=== PATIENT | female | born 1955 | race Caucasian/White ===

== ENCOUNTER 2021-11-16 08:51 | Emergency (ER) | payer MEDICARE ==
[~2021-11-16] VITALS: Ht 162.6 cm; Wt 67.1 kg
[2021-11-16] MEDS ORDERED: PRAVASTATIN SOD40 MG PO (09:29)
[2021-11-16] MEDS ORDERED: LISINOPRIL20 MG PO (09:29)
[2021-11-16] MEDS ORDERED: ADDERALL 15 MG15 MG PO (09:29)
[2021-11-16] MEDS ORDERED: DITROPAN XL5 MG PO (09:29)
[2021-11-16] MEDS ORDERED: ASPIRIN 325 MG TAB PO ONE (09:30)
[2021-11-16 09:33] LABS: BASOPHILS % 0.6 % (0.0-1.0); EOSINOPHILS # (AUTO) 0.1 (0.0-0.4); HEMATOCRIT 47.1 % (34.2-44.1); HEMOGLOBIN 14.9 g/dL (12.0-16.0); LYMPHOCYTES % 28.5 % (18.0-39.1); MEAN CORPUSCULAR HGB CONC 31.6 g/dL (31-35); MEAN CORPUSCULAR VOLUME 97.9 fL (81-99); MONOCYTES # (AUTO) 0.4 (0.2-0.8); MONOCYTES % 6.4 % (4.4-11.3); NEUTROPHILS # (AUTO) 4.3 (2.1-6.9); NEUTROPHILS % 62.1 % (38.7-80.0); PLATELET COUNT 275 x10e3/uL (140-360); RED BLOOD COUNT 4.81 x10e6/uL (3.6-5.1); RED CELL DISTRIBUTION WIDTH 12.8 % (11.7-14.4)
[2021-11-16 09:55] LABS: INR 0.82; PARTIAL THROMBOPLASTIN TIME 32.6 seconds (23.8-35.5); PROTHROMBIN TIME 12.1 seconds (11.9-14.5)
[2021-11-16 10:06] LABS: ALANINE AMINOTRANSFERASE 32 IU/L (0-55); ALBUMIN 3.9 g/dL (3.5-5.0); ALBUMIN/GLOBULIN RATIO 1.2 (0.8-2.0); ALKALINE PHOSPHATASE 75 IU/L (40-150); ANION GAP 13.4 mmol/L (8-16); BLOOD UREA NITROGEN 12 mg/dL (7-26); BUN/CREATININE RATIO 13 (6-25); CALCIUM 9.1 mg/dL (8.4-10.2); CARBON DIOXIDE 28 mmol/L (22-29); CHLORIDE 107 mmol/L (98-107); CREATINE KINASE 120 IU/L (29-168); CREATININE, SERUM 0.91 mg/dL (0.57-1.11); GLUCOSE 99 mg/dL (74-118); POTASSIUM 4.4 mmol/L (3.5-5.1); SODIUM 144 mmol/L (136-145)
[2021-11-16] MEDS ORDERED: ACETAMINOPHEN 325 MG TAB PO ONE (11:45)
== END 2021-11-16 13:04 | disposition home or self-care (01) ==
LOC: ER 08:52
DX: R07.9 Chest pain, unspecified (principal); I69.892 Facial weakness following other cerebrovascular disease
CPT/HCPCS: 36415; 71045; 80053; 82550; 82553; 83880; 84484; 85025; 85610; 85730; 93005; 99284